=== PATIENT | female | born 1960 | race Caucasian/White ===

== ENCOUNTER 2020-01-11 10:24 | Observation (INO) | payer MEDICARE, MEDICAID ==
[~2020-01-11] VITALS: Ht 162.6 cm; Wt 55.0 kg
[2020-01-11] VITALS (15 sets, daily range): BP systolic 108–158; BP diastolic 56–98
[~2020-01-11 10:24] MED LIST: BUPIVAcaine/PF 2.5 mg/ml (0.25%) 30ml vial ONE; CARI3CAP PO; DEXL60CA3 PO; DOCUMENT DATE & TIME OF BETA-BLOCKER PO ONE; FERR325T28 PO; HYDR-3972 PO; METO-539 PO; MIRT15TA PO; QUET200T5 PO; QUET25TA PO; SIMV40TA PO; ceFOXitin 2GM-NS 100mL ADDvant 100 ML IV ONE; ceFOXitin sod/dextrose 2g/50ml 50 ML IV ONE; famotidine 20mg tablet PO ONE; meperidine/PF 25mg/ml syringe IV PRN; morphine 2 MG/ML inj. syringe IV PRN; ondansetron/PF 4mg/2ml inj IV PRN; proCHLORperazine 10 MG/2 ml inj IV PRN; ringers solution, lacted 1,000 ML IV SCH
[2020-01-11 11:36] LABS: CLARITY,URINE CLEAR (Clear); COLOR,URINE YELLOW (Yellow); GLUCOSE, URINE NEGATIVE (Neg); KETONES,URINE NEGATIVE (Neg); LEUKOCYTE ESTERASE ,URINE NEGATIVE (Neg); NITRITES, URINE NEGATIVE (Neg); OCCULT BLOOD,URINE NEGATIVE (Neg); PH,URINE 5.5 (4.8-8.0); PROTEIN,URINE NEGATIVE (Neg); UROBILINOGEN,URINE 0.2 E.U/dL (0.2-1.0)
[2020-01-11 11:37] LABS: BASOPHILS # (AUTO) 0.1 X10'3 (0-0.2); BASOPHILS % (AUTO) 0.6 % (0-1); EOSINOPHILS # (AUTO) 0.1 X10'3 (0-0.9); EOSINOPHILS % (AUTO) 1.1 % (0-6); LYMPHOCYTES # (AUTO) 2.5 X10'3 (1.1-4.8); LYMPHOCYTES % (AUTO) 22.4 % (21-51); MEAN CORPUSCULAR HEMOGLOBIN 31.5 PG (27.0-31.0); MEAN CORPUSCULAR HGB CONC 33.4 g/dL (33.0-36.5); MEAN CORPUSCULAR VOLUME 94.4 FL (78-98); MEAN PLATELET VOLUME 7.3 FL (7.4-10.4); MONOCYTES # (AUTO) 0.7 X10'3 (0-0.9); MONOCYTES % (AUTO) 6.3 % (2-12); NEUTROPHILS # (AUTO) 7.8 X10'3 (1.8-7.7); NEUTROPHILS % (AUTO) 69.6 % (42-75); PRE OP HEMOGLOBIN 14.7 g/dL (12.0-16.0); PRE OP PLATELET COUNT 374 X10'3 (140-440); RED BLOOD COUNT 4.66 X10'6 (4.20-5.60); RED CELL DISTRIBUTION WIDTH 14.2 % (11.5-14.5)
[2020-01-11 11:38] LABS: UA COLLECTION TYPE NON-SPECIFIED
[2020-01-11 11:49] LABS: PARTIAL THROMBOPLASTIN TIME 35 SECONDS (22-32)
[2020-01-11 11:51] LABS: ALBUMIN 4.3 G/DL (3.4-5.0); ALBUMIN/GLOBULIN RATIO 1.2 (1.1-1.5); ALKALINE PHOSPHATASE 114 IU/L (46-116); BLOOD UREA NITROGEN 8 MG/DL (7-18); BUN/CREATININE RATIO 10.5 (6.6-38.0); CALCIUM 8.6 MG/DL (8.5-10.1); CHLORIDE 102 MMOL/L (99-107); CREATININE 0.76 MG/DL (0.40-0.90); PRE OP ALT 25 U/L (30-65); PRE OP ANION GAP 12 (8-16); PRE OP AST 16 U/L (10-37); PRE OP BILIRUB, TOTAL 0.3 MG/DL (0.0-1.0); PRE OP GLUCOSE 93 MG/DL (70-104); PRE OP POTASSIUM 3.8 MMOL/L (3.4-5.1); PRE OP SODIUM 138 MMOL/L (135-145); TOTAL CARBON DIOXIDE 24.5 MMOL/L (24-32); TOTAL PROTEIN 7.9 G/DL (6.4-8.2); eGFR 78 ML/MIN
[2020-01-11] MEDS ORDERED: BUPIVAcaine/PF 2.5 mg/ml (0.25%) 30ml vial ONE ×2 (13:56→18:11)
[2020-01-11] MEDS ORDERED: sevoflurane 250ml liquid IH ONE (14:23)
[2020-01-11] MEDS ORDERED: ondansetron/PF 4mg/2ml inj ONE (14:23)
[2020-01-11] MEDS ORDERED: glycopyrrolate 0.2mg/ml inj ONE (14:23)
[2020-01-11] MEDS ORDERED: acetaminophen 1000 MG/100ml vial IV ONE (14:23)
[2020-01-11] MEDS ORDERED: neostigmine methylsulfate 1 MG/ML 10ml vial ONE (14:23)
[2020-01-11] MEDS ORDERED: midazolam 2 mg/2 ml injection ONE (14:31)
[2020-01-11] MEDS ORDERED: LIDOcaine 2% (20mg/ml) 5ml vial ONE (14:32)
[2020-01-11] MEDS ORDERED: propofol inj 20 ML IV ONE (14:32)
[2020-01-11] MEDS ORDERED: fentaNYL /PF 50mcg/ml 5ml ampule ONE (14:32)
[2020-01-11] MEDS ORDERED: rocuronium 10mg/ml inj IV ONE (14:34)
[2020-01-11] MEDS ORDERED: dexamethasone sod phosphate 4mg/ml inj. ONE (14:35)
[2020-01-11] MEDS ORDERED: ceFAZolin 1000mg inj ONE (15:59)
[2020-01-11] MEDS ORDERED: meperidine/PF 25mg/ml syringe ONE (16:46)
[2020-01-11] MEDS ORDERED: BUPIVACAINE liposomal/PF 13.3 MG/ML vial IM ONE (18:11)
[2020-01-11] MEDS ORDERED: ondansetron/PF 4mg/2ml inj IV PRN (18:50)
--- NOTE | 2020-01-11 18:57 | NUR ---
RECEIVED FROM OR VIA BED ACCOMPANIED BY ANESTHESIOLOGIST DR TINSLEY, REPORT GIVEN. PT DROWSY BUT AROUSES WITH COMPLAINT OF PAIN AT A LEVEL 8. 20 GAUGE PIV R FA PATENT AND RUNNING LR AT 100 ML/HR. F/C DRAINING CLEAR YELLOW FLUID. PPULSES PALPABLE, BRISK CAP REFILL, VSS, BAKER, ABD SOFT, LG BANDAID X3 TO ABD CDI, SCDS ON.
[2020-01-11] MEDS: morphine 4 MG/ML inj SYRINge IV PRN ×2 (19:03→19:20)
--- NOTE | 2020-01-11 20:06 | NUR ---
Patient in room [facility]. I have received report from SENIA MEDEROSSEXTON HELPER and had the opportunity to ask questions and assume patient care.
--- NOTE | 2020-01-11 20:07 | NUR ---
TRANSFERRED VIA BED ACCOMPANIED BY MYSELF, REPORT GIVEN. PT AWAKE AND ALERT WITH COMPLAINT OF PAIN AT A LEVEL 4. 20 GAUGE PIV R FA PATENT AND RUNNING LR AT 100 ML/HR. F/C DRAINING CLEAR YELLOW FLUID. PPULSES PALPABLE, BRISK CAP REFILL, VSS, BAKER, ABD SOFT, LG BANDAID X3 TO ABD CDI, SCDS ON. LEFT IN CARE OF JAYJAY CONN.
[2020-01-11] MEDS: HYDROmorphone 1 mg/ml syringe IV PRN (20:46)
[2020-01-12] VITALS: BP 106/56
[2020-01-12] MEDS: potassium CL 20mEq in D5-1/2NS 1,000 ML IV SCH ×4 (02:08→20:38)
[2020-01-12] MEDS: HYDROmorphone 1 mg/ml syringe IV PRN ×2 (02:09→20:38)
[2020-01-12] MEDS: ceFOXitin inj 1,000 MG in normal saline 100ml IV soln 100 ML IV SCH ×2 (02:18→07:21)
[2020-01-12 05:05] VITALS: BP 122/99
--- NOTE | 2020-01-12 05:22 | NUR ---
pt walked about 900ft, f/c d/c at 0520 tolerated well.
[2020-01-12 05:25] LABS: BASOPHILS % (AUTO) 0.2 % (0-1); EOSINOPHILS % (AUTO) 0 % (0-6); HEMOGLOBIN 12.9 g/dl (12.0-16.0); LYMPHOCYTES # (AUTO) 1.4 X10'3 (1.1-4.8); MEAN CORPUSCULAR HEMOGLOBIN 31.5 PG (27.0-31.0); MEAN CORPUSCULAR HGB CONC 33.1 g/dL (33.0-36.5); MEAN CORPUSCULAR VOLUME 95.1 FL (78-98); MEAN PLATELET VOLUME 7.6 FL (7.4-10.4); MONOCYTES # (AUTO) 1.2 X10'3 (0-0.9); MONOCYTES % (AUTO) 8.5 % (2-12); NEUTROPHILS # (AUTO) 11.1 X10'3 (1.8-7.7); NEUTROPHILS % (AUTO) 81.3 % (42-75); PLATELET COUNT 345 X10'3 (140-440); RED BLOOD COUNT 4.11 X10'6 (4.20-5.60); RED CELL DISTRIBUTION WIDTH 14.3 % (11.5-14.5); WHITE BLOOD COUNT 13.6 X10'3 (4.5-11.0)
[2020-01-12 05:57] LABS: ALBUMIN 3.1 G/DL (3.4-5.0); ANION GAP 8 (8-16); BLOOD UREA NITROGEN 7 MG/DL (7-18); BUN/CREATININE RATIO 8.1 (6.6-38.0); CALCIUM 7.8 MG/DL (8.5-10.1); CHLORIDE 103 MMOL/L (99-107); CREATININE 0.86 MG/DL (0.40-0.90); GLUCOSE 121 MG/DL (70-104); POTASSIUM 4.3 MMOL/L (3.5-5.1); SODIUM 138 MMOL/L (135-145); TOTAL CARBON DIOXIDE 27.3 MMOL/L (24-32); eGFR 68 ML/MIN
--- NOTE | 2020-01-12 06:21 | NUR ---
Problems reprioritized. Patient report given, questions answered & plan of care reviewed with SENIA Rodrigez.
--- NOTE | 2020-01-12 06:34 | NUR ---
Patient in room [facility]. I have received report from Danay Claudio RN and had the opportunity to ask questions and assume patient care.
[2020-01-12 07:00] VITALS: BP 98/48
[2020-01-12] MEDS: HYDROcodone/acetaminophen 10/325mg tab PO PRN ×3 (08:23→16:36)
[2020-01-12 11:00] VITALS: BP 138/91
[2020-01-12] MEDS ORDERED: HYDROcodone/acetaminophen 10/325mg tab PO PRN (16:30)
[2020-01-12] MEDS ORDERED: QUEtiapine 25mg tablet PO SCH (17:00)
[2020-01-12] MEDS ORDERED: QUET50TA PO ×2 (17:03)
[2020-01-12] MEDS ORDERED: QUET200T30 PO (17:19)
[2020-01-12] MEDS: QUEtiapine 25mg tablet PO SCH (17:56)
--- NOTE | 2020-01-12 18:24 | NUR ---
Problems reprioritized. Patient report given, questions answered & plan of care reviewed with Danay Wing RN.
[2020-01-12 18:30] VITALS: BP 137/51
--- NOTE | 2020-01-12 18:36 | NUR ---
Patient in room [facility]. I have received report from SENIA NASCIMENTO and had the opportunity to ask questions and assume patient care. Addendum: 01/12/20 at 1836 by Savannah Irving RN Amended: Links added.
[2020-01-12] MEDS: metoclopramide 5 mg/ml inj IV SCH (20:37)
[2020-01-12] MEDS: ferrous sulfate 325mg tablet PO SCH (20:38)
[2020-01-12] MEDS ORDERED: mirtazapine 15mg tablet PO SCH (21:00)
[2020-01-12] MEDS ORDERED: non-formulary drug (Simvastatin (Zocor) 1 TAB) PO SCH (21:00)
[2020-01-12] MEDS ORDERED: quetiapine 100mg tablet PO SCH (21:00)
[2020-01-13] MEDS: metoclopramide 5 mg/ml inj IV SCH ×3 (01:59→13:59)
[2020-01-13] MEDS: HYDROcodone/acetaminophen 10/325mg tab PO PRN ×3 (03:18→13:59)
[2020-01-13] MEDS: potassium CL 20mEq in D5-1/2NS 1,000 ML IV SCH ×3 (04:27→13:58)
[2020-01-13 05:17] LABS: BASOPHILS % (AUTO) 0.3 % (0-1); EOSINOPHILS # (AUTO) 0.1 X10'3 (0-0.9); EOSINOPHILS % (AUTO) 0.9 % (0-6); HEMATOCRIT 38.4 % (35.0-45.0); HEMOGLOBIN 12.9 g/dl (12.0-16.0); LYMPHOCYTES # (AUTO) 1.9 X10'3 (1.1-4.8); LYMPHOCYTES % (AUTO) 16.6 % (21-51); MEAN CORPUSCULAR HEMOGLOBIN 31.9 PG (27.0-31.0); MEAN CORPUSCULAR HGB CONC 33.7 g/dL (33.0-36.5); MEAN CORPUSCULAR VOLUME 94.8 FL (78-98); MEAN PLATELET VOLUME 7.5 FL (7.4-10.4); MONOCYTES # (AUTO) 1.3 X10'3 (0-0.9); MONOCYTES % (AUTO) 11.4 % (2-12); NEUTROPHILS # (AUTO) 8.3 X10'3 (1.8-7.7); NEUTROPHILS % (AUTO) 70.8 % (42-75); PLATELET COUNT 352 X10'3 (140-440); RED BLOOD COUNT 4.05 X10'6 (4.20-5.60); RED CELL DISTRIBUTION WIDTH 14.2 % (11.5-14.5); WHITE BLOOD COUNT 11.7 X10'3 (4.5-11.0)
[2020-01-13 05:23] LABS: ALBUMIN 3.2 G/DL (3.4-5.0); ANION GAP 9 (8-16); BLOOD UREA NITROGEN 3 MG/DL (7-18); BUN/CREATININE RATIO 4.3 (6.6-38.0); CALCIUM 8.2 MG/DL (8.5-10.1); CHLORIDE 104 MMOL/L (99-107); CREATININE 0.69 MG/DL (0.40-0.90); GLUCOSE 124 MG/DL (70-104); POTASSIUM 3.3 MMOL/L (3.5-5.1); SODIUM 139 MMOL/L (135-145); eGFR 88 ML/MIN
--- NOTE | 2020-01-13 06:29 | NUR ---
Problems reprioritized. Patient report given, questions answered & plan of care reviewed with SENIA Dumas.
[2020-01-13 07:11] VITALS: BP 119/70
[2020-01-13] MEDS ORDERED: pantoprazole 40mg Tablet.DR PO SCH (07:30)
[2020-01-13] MEDS ORDERED: atorvastatin 20mg tablet PO SCH ×2 (08:00→21:00)
[2020-01-13] MEDS ORDERED: metoprolol succinate 25mg (24-HOUR) SR. Tablet PO SCH (08:00)
[2020-01-13] MEDS ORDERED: non-formulary drug (Cariprazine Hydrochloride (Vraylar) 1 CAP) PO SCH (08:00)
[2020-01-13] MEDS ORDERED: non-formulary drug (Dexlansoprazole (Dexilant) 1 CAP) PO SCH (08:00)
[2020-01-13] MEDS ORDERED: QUEtiapine 25mg tablet PO SCH ×3 (08:00→12:00)
[2020-01-13] MEDS ORDERED: CARIPRAZINE 1.5 MG CAPSULE PO SCH (08:00)
[2020-01-13] MEDS: ferrous sulfate 325mg tablet PO SCH (08:33)
[2020-01-13 11:00] VITALS: BP 102/62
[2020-01-13] MEDS: QUEtiapine 25mg tablet PO SCH (17:16)
--- NOTE | 2020-01-13 18:46 | NUR ---
PATIENT DISCHARGED PRIOR TO SHIFT CHANGE, IV TAKEN OUT PRIOR TO DISCHARGE, PATIENT EXPRESSED VERBAL UNDERSTAINDING OF DISCHARGE TEACHING. PATIENT UNDERSTANDS DISCHARGE TEACHING AND WAS TAKING TO LOBBY VIA WHEEL CHAIR AND TAKEN BY FRIEND IN PRIVATE VEHICLE.
--- NOTE | 2020-01-17 09:56 | NUR ---
Case Management DC follow up: Spoke w/pt via telephone. s/p:L ventral hernia repair. Pt Reports:"doing ok". Denies: Acute/continuous CP, emergent SOB, resp distress, orthopnea, dyspnea, N/V, hematemesis, weakness, vertigo, syncope episodes, orthostatic hypotension, ORTIZ, blurry vision, s/s stroke/FAST, dysphagia, bladder pain, dysuria, polyuria, hematuria, retention, abd pain/distention, hematochezia, melena, unexplained bruising, bleeding, fever, chills. Denies s/s infection to surg site, drsg CDI, steri strips in place. Verbalizes understanding of Rx: why prescribed; continues/resumes current Rx as ordered, denies ase r/t polypharmacy. Verbalizes compliance w/aftercare. Verbalizes understanding of s/s that warrant 9-11/ER visit for further evaluation. Pt acknowledges need to schedule/confirm/keep follow up appt w/PCP/[facility], [place], 01/17/20; GI follow up s/p hernia repair, 01/17/20 1145. Needs met, questions/concerns addressed at DC; No further questions/concerns r/t recent hospital stay and/or DC status at this time.
== END 2020-01-13 17:34 | disposition home or self-care (01) ==
LOC: PAS 10:24 → SUR 3N 18:46
PROVIDERS: ADMIT Surgery; ATTEND Surgery
DX: K46.9 Unspecified abdominal hernia without obstruction or gangrene (principal); Z98.1 Arthrodesis status
CPT/HCPCS: 36415; 49652; 71045; 80048; 80053; 81003; 85025; 85610; 85730; 86885; 86900; 86901; 87081; 96361; 96365; 96366; 96375; 96376; C1758; C1781; C9290; G0378; J0131; J0690; J0694; J1100; J1170; J2001; J2175; J2250; J2270; J2405; J2704; J2710; J2765; J3010; J3480; J3490; J7120; S2900; A4215; A4618

== ENCOUNTER 2022-08-20 12:19 | Outpatient (CLI) | payer MEDICARE, MEDICAID ==
[~2022-08-20] VITALS: Ht 162.6 cm; Wt 68.0 kg
[~2022-08-20 12:19] MED LIST changes: -BUPIVAcaine/PF 2.5 mg/ml (0.25%) 30ml vial ONE; -DOCUMENT DATE & TIME OF BETA-BLOCKER PO ONE; +MIRT-116 PO; -MIRT15TA PO; +QUET200T31 PO; -QUET200T5 PO; +QUET50TA PO; +SIMV-343 PO; -SIMV40TA PO; -ceFOXitin 2GM-NS 100mL ADDvant 100 ML IV ONE; -ceFOXitin sod/dextrose 2g/50ml 50 ML IV ONE; -famotidine 20mg tablet PO ONE; -meperidine/PF 25mg/ml syringe IV PRN; -morphine 2 MG/ML inj. syringe IV PRN; -ondansetron/PF 4mg/2ml inj IV PRN; -proCHLORperazine 10 MG/2 ml inj IV PRN; -ringers solution, lacted 1,000 ML IV SCH
[2022-08-20] MEDS ORDERED: VITA-321 PO (12:57)
[2022-08-20] MEDS ORDERED: ROSU20TA2 PO (12:57)
[2022-08-20] MEDS ORDERED: SERT100T PO (12:57)
[2022-08-20] MEDS ORDERED: CYAN50009 PO (12:57)
[2022-08-20] MEDS ORDERED: OXCA300T4 PO (12:57)
[2022-08-20] MEDS ORDERED: AMIT25TA10 PO (12:57)
[2022-08-20] MEDS ORDERED: PRAZ5CAP PO (12:57)
[2022-08-20] MEDS ORDERED: FOLI1TAB27 PO (12:57)
[2022-08-20] MEDS ORDERED: MAGN400C PO (12:57)
[2022-08-20 14:05] LABS: BASOPHILS # (AUTO) 0.1 X10'3 (0-0.2); BASOPHILS % (AUTO) 0.7 % (0-1); EOSINOPHILS # (AUTO) 0.3 X10'3 (0-0.9); EOSINOPHILS % (AUTO) 3.1 % (0-6); LYMPHOCYTES % (AUTO) 23.1 % (21-51); MEAN CORPUSCULAR HGB CONC 33.2 g/dL (33.0-36.5); MEAN CORPUSCULAR VOLUME 93.2 FL (78-98); MEAN PLATELET VOLUME 6.5 FL (7.4-10.4); MONOCYTES # (AUTO) 0.6 X10'3 (0-0.9); MONOCYTES % (AUTO) 7.6 % (2-12); NEUTROPHILS # (AUTO) 5.6 X10'3 (1.8-7.7); NEUTROPHILS % (AUTO) 65.5 % (42-75); PRE OP HEMATOCRIT 41.6 % (35.0-45.0); PRE OP HEMOGLOBIN 13.8 g/dL (12.0-16.0); PRE OP PLATELET COUNT 300 X10'3 (140-440); RED BLOOD COUNT 4.46 X10'6 (4.20-5.60)
[2022-08-20 14:08] LABS: CLARITY,URINE SLIGHTLY CLOUDY (Clear); COLOR,URINE YELLOW (Yellow); GLUCOSE, URINE NEGATIVE (Neg); KETONES,URINE NEGATIVE (Neg); LEUKOCYTE ESTERASE ,URINE NEGATIVE (Neg); NITRITES, URINE NEGATIVE (Neg); OCCULT BLOOD,URINE NEGATIVE (Neg); PH,URINE 7.5 (4.8-8.0); PROTEIN,URINE NEGATIVE (Neg); UROBILINOGEN,URINE 0.2 E.U/dL (0.2-1.0)
[2022-08-20 14:12] LABS: ALBUMIN 3.9 G/DL (3.4-5.0); ALBUMIN/GLOBULIN RATIO 1.1 (1.1-1.5); ALKALINE PHOSPHATASE 117 IU/L (46-116); BLOOD UREA NITROGEN 6 MG/DL (7-18); BUN/CREATININE RATIO 9.1 (10.0-20.0); CALCIUM 8.5 MG/DL (8.5-10.1); CHLORIDE 97 MMOL/L (99-107); CREATININE 0.66 MG/DL (0.40-0.90); PRE OP ALT 51 U/L (30-65); PRE OP ANION GAP 5 (8-16); PRE OP AST 30 U/L (10-37); PRE OP BILIRUB, TOTAL 0.2 MG/DL (0.0-1.0); PRE OP GLUCOSE 92 MG/DL (70-104); PRE OP POTASSIUM 4.4 MMOL/L (3.4-5.1); PRE OP SODIUM 131 MMOL/L (135-145); TOTAL CARBON DIOXIDE 28.6 MMOL/L (24-32); TOTAL PROTEIN 7.4 G/DL (6.4-8.2); eGFR > 90 ML/MIN
[2022-08-20 14:15] LABS: UA COLLECTION TYPE CLN CATCH MIDSTREAM
[2022-08-20 14:16] LABS: AMORPHOUS PHOSPHATES 2+; RBC,URINE NONE SEEN /HPF (0-2); WBC,URINE 0-4 /HPF (0-4)
[2022-08-20 14:19] LABS: BACTERIA,URINE FEW /HPF (Neg); MUCUS STRANDS NONE SEEN /LPF (Neg); SQUAMOUS EPITHELIAL CELL,UR FEW /LPF (FEW)
[2022-08-26] MEDS ORDERED: ringers solution, lacted 1,000 ML IV SCH (05:00)
[2022-08-26] MEDS ORDERED: famotidine 20mg tablet PO ONE (05:30)
[2022-08-26] MEDS ORDERED: cefazolin 2gm/D5W 100mL 100 ML IV ONE (05:30)
[2022-08-26] MEDS ORDERED: DOCUMENT DATE & TIME OF BETA-BLOCKER PO ONE (05:30)
== END 2022-08-20 23:59 | disposition home or self-care (01) ==
LOC: LAB 12:19 → EDSTATUS 08-26 08:30
PROVIDERS: ATTEND Surgery
DX: Z01.812 Encounter for preprocedural laboratory examination (principal); K40.20 Bilateral inguinal hernia, without obstruction or gangrene, not specified as recurrent; J43.9 Emphysema, unspecified; M19.90 Unspecified osteoarthritis, unspecified site; Z98.890 Other specified postprocedural states; Z88.8 Allergy status to other drugs, medicaments and biological substances; Z79.899 Other long term (current) drug therapy; Z87.891 Personal history of nicotine dependence; Z82.49 Family history of ischemic heart disease and other diseases of the circulatory system
CPT/HCPCS: 36415; 80053; 81001; 85025; 93005; J0690; J7120